=== PATIENT | female | born 1985 | race Caucasian/White ===

== ENCOUNTER 2021-06-07 10:00 | Outpatient (CLI) | payer BC, SELFPAY ==
--- NOTE | ~2021-06-07 | MR_ITS ---
EXAMINATION: MR brain/brain stem wo con DATE: 06/07/2021 11:25 INDICATION: Right arm weakness. TECHNIQUE: Magnetic resonance imaging (MRI) of the brain and brainstem was performed without intraven ous contrast. Sequences included sagittal and axial T1-weighted FSE, axial diffusion-weighted FS EPI, axial T2*-weighted GRE, axial T2-weighted FLAIR Propeller, and axial T2-weighted Propeller. Apparent diffusion coefficient (ADC) maps were created. COMPARISON: None. FINDINGS: There is no intracranial hemorrhage, acute infarction, or abnormal intracranial mass lesion . The ventricles are normal in size. The paranasal sinuses are clear. The orbits are normal. The mast oid air cells are normal. IMPRESSION: 1. Normal brain. Reviewed, dictated and finalized at location A. CAL CODING AUDITOR IMPRESSION: 1. Normal brain.
== END 2021-06-07 10:01 | disposition home or self-care (01) ==
PROVIDERS: PCP Internal Medicine; Visit Provider Internal Medicine
DX: R29.898 Other symptoms and signs involving the musculoskeletal system (principal)
CPT/HCPCS: 70551

== ENCOUNTER 2021-08-31 09:01 | Emergency (ER) | payer BC, SELFPAY ==
[2021-08-31] VITALS (15 sets, daily range): BP systolic 118–139; BP diastolic 68–92; PULSE 72–104; RESP 16–18; TEMP 36.4–37.1; O2SAT 90–100
--- NOTE | ~2021-08-31 | XR_ITS ---
XR lumbar spine 2-3V DATE: 08/31/2021 12:50 INDICATION: Fall. Low back pain. TECHNIQUE: AP, lateral and coned lateral lumbosacral views COMPARISON: None FINDINGS: There is mild dextroscoliosis of the thoracolumbar spine. Included lower thoracic and lumbar pedicles are intact. No fracture or bone destruction is evident. N o spondylolisthesis. Lumbar and lumbosacral interspaces are well preserved. The sacroiliac joints lacho ear normal. IMPRESSION: Mild thoracolumbar dextro scoliosis; no fracture or spondylolisthesis Reviewed, dictated and finalized at location B. IMPRESSION: Mild thoracolumbar dextro scoliosis; no fracture or spondylolisthes is
--- NOTE | ~2021-08-31 | CT_ITS ---
EXAMINATION: CT cervical spine wo con, CT thoracic spine wo con DATE: 08/31/2021 12:40 INDICATION: Neck and back pain post fall TECHNIQUE: 1. Computed tomography (CT) of the cervical spine was performed without intravenous contrast. Automat ed exposure control and iterative reconstruction technique were employed. The dose-length product was 285.02 mGy-cm. 2. CT of the thoracic spine was performed without intravenous contrast. Automated exposure control an d iterative reconstruction technique were employed. The dose-length product was 285.02 mGy-cm. COMPARISON: None FINDINGS: Cervical spine: Likely positional straightening of the normal cervical lordosis. No spondylolisthesis or facet sublux ation. Vertebral body heights are normal. No fracture. Mild disc height loss at C5-C6. Scattered mini mal cervical uncovertebral and minimal to mild facet osteoarthritis with no neural foraminal stenosis . No central canal stenosis. Cervical soft tissues are normal. The middle ear cavities and visualized portions of the sphenoid sinus, mastoid air cells airway and apices of the lungs are clear. Thoracic spine: Negligible upper thoracic levocurvature. Sagittal alignment is normal. Vertebral body heights are nor mal. No fracture. Chronic bone island at the anterior aspect of T10. Moderate disc height loss at T2- T3 through T5-T6 and mild disc height loss at the remaining levels from T1-T2 through T9-T10. Multile miguel mild bilateral facet osteoarthritis throughout the thoracic spine. No central canal or neural for aminal stenosis. There are vertebral soft tissues are unremarkable. Mosaic attenuation in the depende nt lungs likely due to partially expiratory phase of imaging. Visualized portion of the thoracic aort a are normal in caliber. IMPRESSION: 1. Minimal to mild cervical and mild to moderate thoracic spondylosis with no acute osseous abnormali ty. Reviewed, dictated and finalized at location A. IMPRESSION: 1. Minimal to mild cervical and mild to moderate thoracic spondylosis with no a cute osseous abnormality.
--- NOTE | 2021-08-31 12:27 | ED.GENADULT ---
HPI - General Adult General Chief complaint: Unspecified Stated complaint: back and ear pain Time Seen by Provider: 08/31/21 11:37 Source: patient and RN notes reviewed Mode of arrival: ambulatory Limitations: no limitations History of Present Illness HPI narrative: Patient is 35 years old white female presents with left ear pain started 48 hours ago. Patient been using Q-tip constantly lately without any improvement. Patient was playing with her daughter, 3 days ago, her dog got excited, she fell landed on her back, currently complaining of neck pain, upper back and lower back pain. History of chronic back pain for over 3 years. Patient wanted make sure nothing new. She denies any fever, chills, nausea, vomiting, abdominal pain, chest pain, shortness of breath, headache or head injury. Related Data Allergies Allergy/AdvReac Type Severity Reaction Status Date / Time No Known Allergies Allergy Verified 08/31/21 09:39 Review of Systems Review of Systems: All systems reviewed & are unremarkable except as noted in HPI and below Exam Narrative: General appearance: Well-developed, well-nourished Skin: Normal color Head: Normocephalic, nontraumatic Eyes: Clear conjunctiva ENT: Oropharynx normal, left ear canal examination showed slightly swollen, erythematous, tender with examination, Neck: Supple, nontender Chest and respiratory: Airway patent, no respiratory distress, no accessory muscle use Heart: Regular rate/rhythm Abdomen: Soft, nontender, no organomegaly, quiet bowel sounds Vascular: Normal peripheral pulses, normal capillary refill. Musculoskeletal: Diffuse tenderness all over the back middle and lateral, thoracic and lumbar. 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, no gross motor deficit Course Course Emergency Course: Stable Vital Signs Vital signs: Vital Signs Temperature 36.6 C 08/31/21 09:08 Pulse Rate 104 H 08/31/21 09:08 Respiratory Rate 18 08/31/21 09:08 Blood Pressure 139/85 08/31/21 09:08 Pulse Oximetry 97 08/31/21 09:08 Temperature 37.1 C 08/31/21 13:00 Pulse Rate 74 08/31/21 13:00 Respiratory Rate 16 08/31/21 13:00 Blood Pressure 118/68 08/31/21 13:00 Pulse Oximetry 100 08/31/21 13:00 Medical Decision Making Vital Signs Vital Signs: Vital Signs Temperature 36.6 C 08/31/21 09:08 Pulse Rate 104 H 08/31/21 09:08 Respiratory Rate 18 08/31/21 09:08 Blood Pressure 139/85 08/31/21 09:08 Pulse Oximetry 97 08/31/21 09:08 Temperature 37.1 C 08/31/21 13:00 Pulse Rate 74 08/31/21 13:00 Respiratory Rate 16 08/31/21 13:00 Blood Pressure 118/68 08/31/21 13:00 Pulse Oximetry 100 08/31/21 13:00 Imaging Data My impression: Impressions Lumbar Spine X-Ray 08/31/21 12:53 IMPRESSION: Mild thoracolumbar dextro scoliosis; no fracture or spondylolisthesis Cervical Spine CT 08/31/21 12:55 IMPRESSION: 1. Minimal to mild cervical and mild to moderate thoracic spondylosis with no acute osseous abnormality. Thoracic Spine CT 08/31/21 12:55 IMPRESSION: 1. Minimal to mild cervical and mild to moderate thoracic spondylosis with no acute osseous abnormality. Radiologist's impression: Impressions Lumbar Spine X-Ray 08/31/21 12:53 IMPRESSION: Mild thoracolumbar dextro scoliosis; no fracture or spondylolisthesis Discharge Plan Discharge Clinical Impression: Acute otalgia Qualifiers: Laterality: left Qualified Code(s): H92.02 - Otalgia, left ear Patient Disposition: Home, Self-Care Condition: Stable Instructions: Antibiotic Form, Earache (ED), Chronic Back Pain (DC) Additional Ins
[2021-08-31] MEDS: IBUPROFEN 600 MG TABLET PO (12:54)
[2021-08-31] MEDS: HYDROcodone/acetaminophen (*CRX) 5-325 MG TABLET 1 TAB PO (12:54)
== END 2021-08-31 14:06 | disposition home or self-care (01) ==
PROVIDERS: Emergency Provider Emergency Medicine; PCP Internal Medicine
DX: H92.02 Otalgia, left ear (principal); M54.50 Low back pain, unspecified; M54.2 Cervicalgia; W18.30XA Fall on same level, unspecified, initial encounter
CPT/HCPCS: 72100; 72125; 72128; 99284; A9270

== ENCOUNTER 2023-07-22 09:47 | Outpatient (CLI) | payer BC, SELFPAY ==
--- NOTE | 2023-07-23 12:56 | P.PCNPFT_ITS ---
PFT Procedure Performed PFT Procedure Performed Plethysmography (Lung Vol) Diffusing Cap (DLCO) Flow Vol Loop Spirometry w/o Bronchodil PFT Interpretation This is a pulmonary function test with spirometry, plethysmography and diffusing capacity. The test was performed and results interpreted in accordance with the 2019 and 2005 ATS/ERS Task Force guidelines respectively using the Global Lung Function Initiative-2012 reference equations. Patient demonstrated good effort and cooperation. Reproducibility criteria were met. The quality of the spirometry maneuver was Grade A. Findings: Spirometry: The contour the inspiratory and expiratory flow tracing are normal. The FVC is 3.76 L, 113% predicted. The FEV1 is 2.89 L, 105% predicted. The FEV1: FVC ratio 77%. Plethysmography: The total lung capacity is 5.04 L, 109% predicted. The functional residual capacity is 3.20 L, 127% predicted. The residual volume is 0.90 L, 64% predicted. Diffusing capacity: The diffusing capacity unadjusted for hemoglobin and carboxyhemoglobin is 20.6, 91% predicted. The diffusing capacity adjusted for a lveolar volume is 4.54, 92% predicted. Impression: The spirometry is normal without evidence of an obstructive abnormality. The lung volumes are normal. The diffusing capacity is normal. There are no prior studies for comparison
== END 2023-07-22 09:48 | disposition home or self-care (01) ==
PROVIDERS: PCP Internal Medicine; Visit Provider Internal Medicine
DX: R06.09 Other forms of dyspnea (principal)
CPT/HCPCS: 94375; 94726; 94729